=== PATIENT | female | born 1965 | race Caucasian/White ===

== ENCOUNTER → 2022-02-24 | Outpatient (CLI) | payer BC | LOC: KOH-I 09:35 | DX: M79.671 Pain in right foot (principal); S92.321A Displaced fracture of second metatarsal bone, right foot, initial encounter for closed fracture | CPT/HCPCS: 73630 ==

== ENCOUNTER → 2022-03-27 | Outpatient (CLI) | payer BC | LOC: KOH-I 08:32 | DX: S92.321D Displaced fracture of second metatarsal bone, right foot, subsequent encounter for fracture with routine healing (principal); S92.351A Displaced fracture of fifth metatarsal bone, right foot, initial encounter for closed fracture | CPT/HCPCS: 73630 ==